=== PATIENT | female | born 1985 | race African-American/Black ===

== ENCOUNTER 2021-03-11 21:09 | Emergency (ER) | payer OTHER ==
[~2021-03-11] VITALS: Ht 162.6 cm; Wt 102.3 kg
[2021-03-11 21:15] VITALS: BP 130/83; PULSE 65; TEMP 97.7
[2021-03-11] MEDS ORDERED: TYLENOL 325MG325 MG PO (21:29)
[2021-03-11] MEDS ORDERED: ROBAXIN 50500 MG/TAB PO (21:29)
[2021-03-11] MEDS ORDERED: MOTRIN 600600 MG/TAB PO (21:29)
[2021-03-11] MEDS ORDERED: LIDODERM 5% PATC1 EA TP (21:29)
== END 2021-03-11 22:35 | disposition home or self-care (01) ==
LOC: COL.ER 21:09
DX: S39.012A Strain of muscle, fascia and tendon of lower back, initial encounter (principal); J45.909 Unspecified asthma, uncomplicated; X50.1XXA Overexertion from prolonged static or awkward postures, initial encounter
CPT/HCPCS: J1885